=== PATIENT | female | born 1995 | race Caucasian/White ===

== ENCOUNTER 2018-01-19 12:58 | Emergency (ER) | payer OTHER, BC ==
[2018-01-19 13:10] VITALS: RESP 18
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
[2018-01-19] MEDS ORDERED: KETOROLAC 60 MG/2 ML VIAL IM STA (14:59)
--- NOTE | 2018-01-19 15:41 | XR ---
EXAM TYPE: LUMBAR SPINE X RAY SERIES COMPARISON: NONE HISTORY: Pain TECHNIQUE: Three views are submitted. FINDINGS: Alignment is anatomic. The pedicles are intact. The transverse processes are intact. There is no s pondylolysis or spondylolisthesis. Multilevel facet arthropathy extending from L3 through S1. IMPRESSION: 1. Multilevel facet arthropathy extending from L3 through S1.
[2018-01-19 16:00] VITALS: BP 135/59; PULSE 77; TEMP 98.4
== END 2018-01-19 16:00 | disposition home or self-care (01) ==
LOC: EC 12:58
DX: S13.4XXA Sprain of ligaments of cervical spine, initial encounter (principal); M54.5 Low back pain; Z97.5 Presence of (intrauterine) contraceptive device; V43.52XA Car driver injured in collision with other type car in traffic accident, initial encounter; Y93.89 Activity, other specified; Y92.410 Unspecified street and highway as the place of occurrence of the external cause
CPT/HCPCS: 99284; 72100; 72125; 70450; J1885

== ENCOUNTER 2018-10-13 09:05 | Emergency (ER) | payer BC, OTHER ==
[2018-10-13 09:17] VITALS: BP 128/91; PULSE 59; RESP 16; TEMP 98.6
[2018-10-13 10:21] LABS: Appearance,Urine Clear (Clear); Bacteria,Urine Few /hpf; Bilirubin,Urine Negative (Negative); Blood,Urine Large (Negative); Color,Urine Yellow; Glucose,Urine (UA) Negative (Negative); Ketones,Urine Negative (Negative); Leukocyte Esterase,Urine Negative (Negative); Mucus,Urine Occasional /hpf; Nitrite,Urine Negative (Negative); PH, Urine 6.5 (5.0-8.0); Protein,Urine 1+ (Negative); RBC,Urine >182 /hpf (0-5); Specific Gravity,Urine 1.008 (1.001-1.035); Squamous Epithelial Cell,Urine 1 /hpf (0-4); Urobilinogen,Urine <2.0 mg/dL (<2.0)
--- NOTE | 2018-10-13 11:53 | ED ---
Female Urogenital HPI - General Chief complaint: Urogenital Stated complaint: UTI Time Seen by Provider: 10/13/18 09:18 Source: patient, RN notes reviewed, old records reviewed Mode of arrival: ambulatory Limitations: no limitations - History of Present Illness Initial comments: This is a 23-year-old female the ER for evaluation, denies chance. Positive IUD. Patient states she's had history of blood in the urine. Painful urination. No fevers. No known sick contacts no recent travel history. Mild blood in the urine as well MD Complaint: dysuria -: hour(s) Location: suprapubic Radiation: non-radiating Severity: mild Severity scale (1-10): 1 Quality: cramping Consistency: constant Improves with: none Worsens with: urination Associated Symptoms: denies other symptoms - Related Data Previous Rx's Medication Instructions Recorded Naproxen [Naprosyn] 500 mg PO Q12HR #30 tab 10/13/18 Nitrofurantoin Monohyd/M-Cryst 100 mg PO Q12HR #10 cap 10/13/18 [Macrobid] Phenazopyridine [Pyridium] 200 mg PO TID #10 tablet 10/13/18 Allergies Allergy/AdvReac Type Severity Reaction Status Date / Time No Known Allergies Allergy Verified 10/13/18 09:47 Review of Systems ROS Statement: Those systems with pertinent positive or pertinent negative responses have been documented in the HPI. ROS Other: All systems not noted in ROS Statement are negative. Past Medical History Additional Past Medical History / Comment(s): IBS History of Any Multi-Drug Resistant Organisms: None Reported Past Surgical History: No Surgical Hx Reported Past Psychological History: ADD/ADHD Smoking Status: Never smoker Past Alcohol Use History: Occasional Past Drug Use History: None Reported General Exam Limitations: no limitations General appearance: alert, in no apparent distress Head exam: Present: atraumatic, normocephalic, normal inspection Eye exam: Present: normal appearance, PERRL, EOMI. Absent: scleral icterus, conjunctival injection, periorbital swelling ENT exam: Present: normal exam, mucous membranes moist Neck exam: Present: normal inspection. Absent: tenderness, meningismus, lymphadenopathy Respiratory exam: Present: normal lung sounds bilaterally. Absent: respiratory distress, wheezes, rales, rhonchi, stridor Cardiovascular Exam: Present: regular rate, normal rhythm, normal heart sounds. Absent: systolic murmur, diastolic murmur, rubs, gallop, clicks GI/Abdominal exam: Present: soft, normal bowel sounds. Absent: distended, tenderness, guarding, rebound, rigid Extremities exam: Present: normal inspection, full ROM, normal capillary refill. Absent: tenderness, pedal edema, joint swelling, calf tenderness Back exam: Present: normal inspection Neurological exam: Present: alert, oriented X3, CN II-XII intact Psychiatric exam: Present: normal affect, normal mood Skin exam: Present: warm, dry, intact, normal color. Absent: rash Course Vital Signs 10/13/18 09:12 Temperature 98.6 F Pulse Rate 59 L Respiratory 16 Rate Blood Pressure 128/91 O2 Sat by Pulse 98 Oximetry - Reevaluation(s) Reevaluation #1: 10/13/18 10:41 Medical record reviewed Medical Decision Making - Medical Decision Making 23 female the ER positive UTI. Patient placed on antibiotics and can be discharged home Disposition Clinical Impression: Urinary tract infection Disposition: HOME SELF-CARE Condition: Good Instructions (If sedation given, give patient instructions): Urinary Tract Infection in Women (ED) Prescriptions: Naproxen [Naprosyn] 500 mg PO Q12HR #30 tab Nitrofurantoin Monohyd/M-Cryst [Macrobid] 100 mg PO Q12HR #10 cap Phenazopyridine [Pyridium] 200 mg PO TID #10 tablet Is patient prescribed a controlled substance at d/c from ED?: No Referrals: Constantino Brannon DO [Primary Care Provider] - 1-2 days
== END 2018-10-13 11:43 | disposition home or self-care (01) ==
LOC: EC 09:05
DX: N39.0 Urinary tract infection, site not specified (principal)
CPT/HCPCS: 81001; 81025; 87086; 99284

== ENCOUNTER 2019-09-09 15:58 | Emergency (ER) | payer BC ==
[2019-09-09 16:05] VITALS: RESP 18; TEMP 98.2
[2019-09-09] MEDS ORDERED: ONDANSETRON 4 MG/2 ML VIAL IVP STA (17:24)
[2019-09-09] MEDS ORDERED: KETOROLAC 30 MG/ML 1 ML VIAL IVP STA (17:24)
[2019-09-09 17:47] LABS: Appearance,Urine Clear (Clear); Basophils % (A) 0 %; Bilirubin,Urine Negative (Negative); Blood,Urine Negative (Negative); Color,Urine Colorless; Eosinophils % (A) 1 %; Glucose,Urine (UA) Negative (Negative); HCT 39.7 % (34.0-46.0); HGB 13.3 gm/dL (11.4-16.0); Ketones,Urine Negative (Negative); Leukocyte Esterase,Urine Negative (Negative); Lymphocytes # (A) 1.5 k/uL (1.0-4.8); Lymphocytes % (A) 41 %; MCH 30.3 pg (25.0-35.0); MCHC 33.6 g/dL (31.0-37.0); MCV 90.1 fL (80.0-100.0); Mean Platelet Volume 8.1; Monocytes # (A) 0.2 k/uL (0-1.0); Monocytes % (A) 6 %; Neutrophils # (A) 1.8 k/uL (1.3-7.7); Neutrophils % (A) 49 %; Nitrite,Urine Negative (Negative); PH, Urine 6.5 (5.0-8.0); Platelet Count 273 k/uL (150-450); Protein,Urine Negative (Negative); RDW 12.7 % (11.5-15.5); Specific Gravity,Urine 1.002 (1.001-1.035); Urobilinogen,Urine <2.0 mg/dL (<2.0); WBC 3.6 k/uL (3.8-10.6)
--- NOTE | 2019-09-09 17:48 | XR ---
EXAMINATION TYPE: XR chest 2V DATE OF EXAM: 09/09/2019 COMPARISON: 03/01/2011 HISTORY: Left side pain TECHNIQUE: 2 views FINDINGS: Heart and mediastinum are normal. Lungs are clear. Diaphragm is normal. Bony thorax appears normal. IMPRESSION: Normal chest. No change.
[2019-09-09 18:00] LABS: ALT 17 U/L (4-34); AST 22 U/L (14-36); African American GFR (CKD) >90 (>60 ml/min/1.73 sqM); Albumin 4.9 g/dL (3.5-5.0); Alkaline Phosphatase 46 U/L (38-126); Anion Gap 7 mmol/L; Blood Urea Nitrogen 10 mg/dL (7-17); Calcium 9.6 mg/dL (8.4-10.2); Carbon Dioxide 26 mmol/L (22-30); Chloride 106 mmol/L (98-107); D-Dimer 0.39 mg/L FEU (<0.60); Glucose 81 mg/dL (74-99); Non-African American GFR(CKD) >90 (>60 ml/min/1.73 sqM); Partial Thromboplastin Time 23.7 sec (22.0-30.0); Potassium 4.1 mmol/L (3.5-5.1); Prothrombin Time 10.3 sec (9.0-12.0); Sodium 139 mmol/L (137-145); Total Bilirubin 0.9 mg/dL (0.2-1.3); Total Protein 7.5 g/dL (6.3-8.2)
--- NOTE | 2019-09-09 18:35 | ED ---
Chest Pain HPI - General Chief Complaint: Chest Pain Stated Complaint: chest pain Time Seen by Provider: 09/09/19 16:00 Source: patient Mode of arrival: ambulatory Limitations: no limitations - History of Present Illness Initial Comments: The patient is a 24-year-old female with no past medical history who presents emergency room with reported chest pain. She states she has been going on for the past 3 days. States that it is an intermittent pain. It is worse with deep breath intake. States that it is located over the left side of her chest and makes her short of breath. No history of similar in the past. Denies any history of asthma. No history of DVT or PE. Denies any lower extreme edema. She denies a cough, fevers or chills. There is some associated nausea without vomiting prior. States that she is concerned because she has been using a marijuana vaping pen for the past 3 weeks. Denies palpitations. No ripping or tearing sensation to her back. Denies any numbness or tingling in her extremities. Denies possibly . No abdominal pain or changes in her bowel or bladder habits. Last menstrual cycle was 2 weeks ago. There are no other alleviating, precipitating or modifying factors - Related Data Previous Rx's Medication Instructions Recorded Naproxen [Naprosyn] 500 mg PO Q12HR #30 tab 10/13/18 Nitrofurantoin Monohyd/M-Cryst 100 mg PO Q12HR #10 cap 10/13/18 [Macrobid] Phenazopyridine [Pyridium] 200 mg PO TID #10 tablet 10/13/18 Ondansetron Odt [Zofran Odt] 4 mg PO Q8HR PRN #10 tab 09/09/19 Allergies Allergy/AdvReac Type Severity Reaction Status Date / Time No Known Allergies Allergy Verified 09/09/19 16:05 Review of Systems ROS Statement: Those systems with pertinent positive or pertinent negative responses have been documented in the HPI. ROS Other: All systems not noted in ROS Statement are negative. EKG Findings - EKG Comments: EKG Findings:: EKG demonstrates normal sinus rhythm with a ventricular rate of 67. UT interval 120. QRS 92. QTC 416. No acute ST segment or lesion depressions concerning for ischemic changes. No signs of Parkinson White or Brugada syndrome Past Medical History Past Medical History: No Reported History Additional Past Medical History / Comment(s): IBS History of Any Multi-Drug Resistant Organisms: None Reported Past Surgical History: No Surgical Hx Reported Past Psychological History: ADD/ADHD Smoking Status: Never smoker Past Alcohol Use History: Occasional Past Drug Use History: None Reported General Exam Limitations: no limitations General appearance: alert, in no apparent distress Head exam: Present: atraumatic, normocephalic, normal inspection Eye exam: Present: normal appearance, PERRL, EOMI. Absent: scleral icterus, conjunctival injection, periorbital swelling ENT exam: Present: normal exam, mucous membranes moist Neck exam: Present: normal inspection. Absent: tenderness, meningismus, lymphadenopathy Respiratory exam: Present: normal lung sounds bilaterally. Absent: respiratory distress, wheezes, rales, rhonchi, stridor Cardiovascular Exam: Present: regular rate, normal rhythm, normal heart sounds. Absent: systolic murmur, diastolic murmur, rubs, gallop, clicks GI/Abdominal exam: Present: soft, normal bowel sounds. Absent: distended, tenderness, guarding, rebound, rigid Extremities exam: Present: normal inspection, full ROM, normal capillary refill. Absent: tenderness, pedal edema, joint swelling, calf tenderness Back exam: Present: normal inspection Neurological exam: Present: alert, oriented X3, CN II-XII intact Psychiatric exam: Present: normal affect, normal mood Skin exam: Present: warm, dry, intact, normal color. Absent: rash Course Vital Signs 09/09/19 09/09/19 09/09/19 16:02 18:30 19:31 Temperature 98.2 F 98.2 F Pulse Rate 103 H 64 58 L Respiratory 18 18 18 Rate Blood Pressure 144/91 126/93 126/93 O2 Sat by Pulse 100 100 98 Oximetry Chest Pain MDM - MDM Upon arrival patient was placed into room 26. A thorough history and physical exam was performed. 12-lead EKG is performed which demonstrates no concerning EKG changes. I did recommend laboratory studies. Provide was established the patient was given 15 mg of Toradol. Laboratory studies were conducted and demonstrated normal CBC, CMP and coagulation studies. D-dimer is normal at 0.39. Urinalysis is negative as well as hCG. The patient went for chest x-ray which demonstrates no acute findings. I discussed diagnosis, differential and treatment options. The patient feels reassured at this time. She is requesting something for nausea at home. He did provide her with a short prescription for Zofran. She needs to follow-up with her primary care doctor and have an echo performed. The patient is to return for any new or worsening symptoms. She was then discharged home in stable condition Disposition Clinical Impression: Pleurisy, Chest pain, Nausea Disposition: HOME SELF-CARE Condition: Stable Instructions (If sedation given, give patient instructions): Chest Pain (ED) Additional Instructions: please follow-up with her primary care doctor in 2-4 days. Return to the emergency room for any new or worsening symptoms. I recommended you have an Echo performed Prescriptions: Ondansetron Odt [Zofran Odt] 4 mg PO Q8HR PRN #10 tab PRN Reason: Nausea Is patient prescribed a controlled substance at d/c from ED?: No Referrals: Constantino Brannon DO [Primary Care Provider] - 1-2 days Time of Disposition: 18:58
[2019-09-09 18:54] VITALS: BP 126/93
[2019-09-09 19:32] VITALS: PULSE 58
== END 2019-09-09 19:33 | disposition home or self-care (01) ==
LOC: EC 15:58
DX: R09.1 Pleurisy (principal); R11.0 Nausea; R07.1 Chest pain on breathing; R06.02 Shortness of breath
CPT/HCPCS: 96374; 96375; 99284; 36415; 85379; 80053; 83690; 83735; 84484; 85025; 85610; 85730; 81003; 81025; 71046; J2405; J1885